=== PATIENT | female | born 1995 | race Caucasian/White ===

== ENCOUNTER 2020-07-05 12:27 | Emergency (ER) | payer BC, SELFPAY ==
[2020-07-05 12:38] VITALS: BP 121/85; PULSE 79; RESP 16; TEMP 36.6; O2SAT 100
--- NOTE | 2020-07-05 12:38 | ED.FEMALEGU ---
HPI - Female Genitourinary General Chief complaint: Urogenital-Female Stated complaint: POS UTI Time Seen by Provider: 07/05/20 12:38 Source: patient and RN notes reviewed History of Present Illness HPI Narrative: Patient is a 24-year-old female who presents the urgent care with complaints of burning with urination and low back pain. Patient states that 1 month ago it started with some vaginal itchiness. Patient denies of any discharge. States that she has been tested for STDs recently, which were negative. Patient denies of any abdominal pain but states she was having some nausea and vomited this morning. Patient has not taken anything [id number] for her symptoms nor has she followed up with her [employer]. No other acute complaints. No acute distress noted. Patient aware of the plan of care. Some parts of this dictation were generated by voice recognition software and may contain typographical and/or grammatical inaccuracies. Related Data Home Medications Medication Instructions Recorded Confirmed alprazolam 07/05/20 desvenlafaxine succinate mg PO 07/05/20 Allergies Allergy/AdvReac Type Severity Reaction Status Date / Time No Known Allergies Allergy Verified 07/05/20 12:37 Review of Systems Review of Systems: Narrative: CONSTITUTIONAL: Denies fever, chills, or sweats. EYES: Denies visual changes, redness, or discharge. ENT: Denies rhinorrhea, congestion, sore throat, or otalgia. CARDIOVASCULAR: Denies chest pain, palpitations, or edema. RESPIRATORY: Denies cough or dyspnea. GASTROINTESTINAL: Reports of one episode of nausea and vomiting this morning GENITOURINARY: Reports of dysuria SKIN: Denies rash or itching. MUSCULOSKELETAL: Reports of low back pain NEUROLOGIC: Denies headache, numbness, or weakness. All other systems reviewed are negative, except as documented in HPI. [facility] Family History Family History (Updated 04/12/16 @ 10:30 by DOCTOR UNKNOWN) Other Family history of pancreatic cancer Hypertension Social History Social History Smoking status: Never smoker Alcohol intake: never Comments At the time of my signature, I reviewed and agree with the nursing past medical, surgical, social, and family history. There is no relevant family history pertinent to the patient complaint. Exam Narrative: Exam Narrative: GENERAL: This is a well-nourished, well-developed patient. Diaphoretic HEAD: normocephalic, atraumatic. EYES: PERRL. Sclera clear/white. Vision is grossly intact. EARS: External ears normal NOSE: External nose normal with no obvious nasal discharge, nares without redness, no rhinorrhea. THROAT: Mucous membranes moist GASTROINTESTINAL: Abdomen soft, non-tender, nondistended. Bowel sounds are active. SKIN: Very pale. Warm, intact with no suspicious lesions or rash, good texture and turgor. NEURO: awake, alert, and oriented to person, place and time. There were no obvious focal neurologic abnormalities. EXTREMITIES: No clubbing, cyanosis, or edema. BACK: Negative bilateral CVA tenderness Course Vital Signs Vital signs: Vital Signs Temperature 97.8 F 07/05/20 12:38 Pulse Rate 79 07/05/20 12:38 Respiratory Rate 16 07/05/20 12:38 Blood Pressure 121/85 07/05/20 12:38 Pulse Oximetry 100 07/05/20 12:38 Temperature 97.8 F 07/05/20 12:39 Pulse Rate 79 07/05/20 12:39 Respiratory Rate 16 07/05/20 12:39 Blood Pressure 121/85 07/05/20 12:39 Pulse Oximetry 100 07/05/20 12:39 Reviewed Transfer Transfered to: [place] Transportation: Other (Private car?mother as a stage driver) Transfer rationale: Abnormal urine analysis, diaphoretic, nausea, vomiting Accepting physician: NAMITA Daniels MDM - Female Genitourinary MDM Narrative Medical decision making narrative: Reviewed lab results with the patient. She is aware that urine analysis shows ketones and bilirubin which is an abnormal urinalysis however not indicative of a urinary tract infection. Bl
[2020-07-05 12:39] VITALS: BP 121/85; PULSE 79; RESP 16; TEMP 36.6; O2SAT 100
[2020-07-05 12:51] LABS: Glucose Point of Care 128 (65-105)
== END 2020-07-05 13:04 | disposition short-term general hospital (02) ==
PROVIDERS: Emergency Provider Nurse Practitioner Family
DX: R30.0 Dysuria (principal); R42 Dizziness and giddiness; R11.2 Nausea with vomiting, unspecified
CPT/HCPCS: 81003; 81025; 82948; 99213; G0463

== ENCOUNTER 2020-07-05 13:12 | Emergency (ER) | payer BC, SELFPAY ==
--- NOTE | ~2020-07-05 | US_ITS ---
EXAMINATION: US pelvic complete w TV DATE: 07/05/2020 15:44 INDICATION: Severe pelvic pain Comparison:No prior studies TECHNIQUE: Multiple transabdominal and endovaginal sonographic images of the pelvis performed. FINDINGS: The uterus measures 7.8 x 4.7 x 3.2 cm. There is an IUD present in the endometrium. The end ometrial complex measures 3 mm. The right ovary measures 2.9 x 2.3 x 1.3 cm and the left ovary measures 3.5 x 3.2 x 3.6 cm. There ar e small follicles in each ovary. There is a complicated left ovarian cyst measuring 2.9 cm. There is no free fluid in the pelvis. There are no abnormal masses seen on either side. IMPRESSION: 1. Complicated 2.9 cm left ovarian cyst. Reviewed, dictated and finalized at location A. [employer]
[2020-07-05 13:16] VITALS: BP 119/78; PULSE 74; RESP 20; TEMP 36.8; O2SAT 97
--- NOTE | 2020-07-05 13:30 | PC.NURSE ---
patient here with urinary symptoms. see initial note. resting on stretcher. orders have been placed by provider. SL inserted. room set up for pelvic exam. meds given as ordered. patient with increased anxiety lately. states she graduated from college in September but has not yet started working due to needing some mental health time . mother in room. alert. oriented. tearful and anxious over being stuck with needles.
--- NOTE | 2020-07-05 13:36 | ED.ABDPAIN ---
HPI - Abdominal Pain General Chief Complaint: Urogenital-Female Stated Complaint: burning with urination, back pain Time Seen by Provider: 07/05/20 13:23 Source: patient Mode of arrival: ambulatory Limitations: no limitations History of Present Illness HPI narrative: This patient is a 24 year old female who presents from [facility] for evaluation of nausea, vomiting and abdominal pain. Patient reports lower abdominal pain x 1 week. She reports her pain was initially intermittent but now it is dull ache. PAin is intermittent cramping and a constant dull ache . She has has 3 days of lower back pain. She has nausea, vomiting and diarrhea but she denies a fever. She also reports 3 days of burning with urination. [facility] did not see findings suggestive of UTI so she was sent to ER for labs. Related Data Home Medications Medication Instructions Recorded Confirmed alprazolam 07/05/20 desvenlafaxine succinate mg PO 07/05/20 Allergies Allergy/AdvReac Type Severity Reaction Status Date / Time No Known Allergies Allergy Verified 07/05/20 12:37 Review of Systems Review of Systems: All systems reviewed & are unremarkable except as noted in HPI and below Constitutional: Constitutional: Denies chills and Denies fever(s) ENT: Denies sore throat Cardiovascular: Cardiovascular: Denies chest pain Respiratory: Respiratory: Denies cough and Denies dyspnea Gastrointestinal: Gastrointestinal: Reports abdominal pain, Reports diarrhea, Reports nausea and Reports vomiting Genitourinary: Genitourinary: Denies hematuria, Reports dysuria and Reports pelvic pain Musculoskeletal: Musculoskeletal: Reports back pain PMFSH Past Medical History Medical History (Updated 07/05/20 @ 17:12 by Seema Ramirez MD) Depression Surgical History Surgical History (Updated 07/05/20 @ 13:40 by Seema Ramirez MD) H/O wisdom tooth extraction Family History Family History (Updated 04/12/16 @ 10:30 by DOCTOR UNKNOWN) Other Family history of pancreatic cancer Hypertension Social History Social History Smoking status: Never smoker Alcohol intake: never Gender identity (if verbalized by the patient): Female Exam Narrative: Exam Narrative: GENERAL: Well-appearing, well-nourished, and in no acute distress. HEAD: Normocephalic, atraumatic EYES: PERRLA and EOMI, conjunctiva clear without discharge THROAT:Mucous membranes moist, Oropharynx normal without erythema, exudate, peritonsillar swelling or fluctuance NECK: Supple, without lymphadenopathy or mass RESPIRATORY: No respiratory distress, Airway patent, Respirations non-labored, Clear to auscultation without rales, rhonchi or wheeze HEART: Regular rate and rhythm. No murmur heard. Normal peripheral pulses. ABDOMEN: Soft, nontender, nondistended, normal active bowel sounds. No masses. No rebound or guarding, No organomegaly. EXTREMITIES: No edema, normal strength with full range of motion. SKIN: Warm, dry, normal color without rash NEURO: Alert and oriented x3. CN 2-12 grossly intact. No focal deficits. PSYCH: Normal mood and affect. : Speculum Exam - Vagina: abnormal vaginal discharge yellow Speculum Exam - Cervix: Cervical os closed Bimanual exam- vagina & uterus: cervical motion tenderness Course Reevaluation(s) Reevaluation #1: Patient states she is ready for discharge home Date: 07/05/20 Time: 16:34 Consultations Consultation #1: I Discussed case with Dr. Dumont who is iron pellet tester for Dr. Mauro. I have discussed US and patient presentation. She agrees with management of PID tx and outpatient follow up . Date: 07/05/20 Time: 16:33 Vital Signs Vital signs: Vital Signs Temperature 98.2 F 07/05/20 13:16 Pulse Rate 74 07/05/20 13:16 Respiratory Rate 20 07/05/20 13:16 Blood Pressure 119/78 07/05/20 13:16 Pulse Oximetry 97 07/05/20 13:16 Temperature 98.3 F 07/05/20 17:33 Pulse Rate 78 02/0
[2020-07-05] MEDS: KETOROLAC 15 MG/ML VIAL (*BKC) IV PUSH (13:45)
[2020-07-05] MEDS: ONDANSETRON INJ 4 MG/2 ML VIAL IV PUSH (13:50)
[2020-07-05 13:55] LABS: Basophils Percent Auto 0.2 % (0.2-1.2); Hematocrit 44.9 % (37.0-47.0); Hemoglobin 15.6 g/dL (12.0-15.0); Immature Granulocyte Absolute 0.02 K/mm3 (0.00-0.031); Immature Granulocyte Percent A 0.2 % (0-0.5); Lymphocytes Absolute Auto 0.64 K/mm3 (0.9-3.2); Lymphocytes Percent Auto 6.5 % (18.3-44.2); Mean Corpuscular HGB Conc 34.7 g/dl (32-36); Mean Corpuscular Hemoglobin 31.6 pg (26-34); Mean Corpuscular Volume 90.9 fl (80-100); Mean Platelet Volume 9.4 fl (7.4-10.4); Monocytes Absolute Auto 0.4 K/mm3 (0.1-0.6); Monocytes Percent Auto 4.1 % (2.6-8.5); Neutrophils Absolute Auto 8.7 K/mm3 (1.3-6.7); Platelet Count Result 233 k/mm3 (150-375); Red Blood Count 4.94 M/mm3 (4.2-5.4); Red Cell Distribution Width 12.5 % (11.5-14.5); White Blood Count 9.8 K/mm3 (4.5-10.0)
[2020-07-05] MEDS: LACTATED RINGERS 1,000 ML 999 ML IV CONT (14:00)
[2020-07-05 14:08] LABS: Alanine Aminotransferase 16 U/L (4-35); Albumin Level 4.9 g/dL (3.5-5.1); Alkaline Phosphatase 101 U/L (38-126); Anion Gap 12 mmol/L (8-16); Aspartate Amino Transferase 30 U/L (14-36); Bilirubin,Total 0.6 mg/dL (0.2-1.3); Blood Urea Nitrogen 10 mg/dL (7-17); Calcium 10.1 mg/dL (8.4-10.2); Carbon Dioxide 22 mmol/L (22-30); Chloride 104 mmol/L (98-107); Estimated CRCL calculation 142 ml/min; Estimated Glomerular Filt Rate > 60; Glucose 141 mg/dL (65-105); Lipase 22 U/L (23-300); Magnesium 1.6 mg/dL (1.6-2.3); Potassium 3.7 mmol/L (3.4-5.0); Sodium 138 mmol/L (137-145)
[2020-07-05] MEDS: PROMETHAZINE HCL 25 MG/ML AMPUL 12.5 MG IV PUSH (14:59)
[2020-07-05 15:11] LABS: Add Urine Microscopic? YES; Appearance Urine Clear (Clear); Bacteria Urine Trace /hpf; Bilirubin Urine Negative (Negative); Color Urine Yellow (Yellow); Glucose Urine UA Negative (Negative); Ketones Urine 2+ mg/dL (Negative); Leukocyte Esterase Ur 1+ LEU/UL (Negative); Mucus Urine Heavy /lpf; Nitrate Urine Negative (Negative); Protein Urine 2+ mg/dL (Negative); Specific Grav Ur 1.029 (1.001-1.035); Squamous Epithelial Cell Urine Many /hpf (Few); Urobilinogen Urine Negative mg/dL (<2.0); WBC Urine 16-20 /hpf
[2020-07-05 15:15] LABS: Blood Urine Negative (Negative)
[2020-07-05] MEDS: cefTRIAXone 250 MG VIAL 500 MG IM (16:16)
[2020-07-05 17:33] VITALS: BP 127/76; PULSE 78; TEMP 36.8
== END 2020-07-05 17:34 | disposition home or self-care (01) ==
PROVIDERS: Emergency Provider General Practice; PCP Internal Medicine
DX: N83.202 Unspecified ovarian cyst, left side (principal); N73.9 Female pelvic inflammatory disease, unspecified; E86.0 Dehydration
CPT/HCPCS: 36415; 76830; 76856; 80053; 81001; 81025; 83690; 83735; 85025; 87070; 87077; 87086; 87491; 87591; 87808; 96361; 96372; 96374; 96375; 99284; J0696; J1885; J2405; J2550; J7120